=== PATIENT | male | born 1955 | race Caucasian/White ===

== ENCOUNTER 2019-09-04 10:46 | Emergency (ER) | payer OTHER ==
[2019-09-04 10:07] VITALS: BP 101/74; PULSE 100
--- NOTE | 2019-09-04 10:46 | EDM.PDOC ---
ED HPI GENERAL MEDICAL PROBLEM - General Chief Complaint: Skin Complaint Stated Complaint: WOUND Time Seen by Provider: 09/04/19 10:23 Source of Information: Reports: Patient History Limitations: Reports: No Limitations - History of Present Illness INITIAL COMMENTS - FREE TEXT/NARRATIVE: This 64 yo male patient reports to the ED from the [facility] due to inflammation of his right buttocks. 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 The patient reports the area has been getting much larger. The patient was advised that he had bursitis. The patient reports he has been having intermittent night sweats over the past 2 days. The patient has been taking NSAIDs and resting. The patient had a UA done through the [facility] today. The patient has been having increased pain and redness over the area of concern. Duration: Day(s):, Constant, Getting Worse Location: Reports: Lower Extremity, Right Quality: Reports: Ache, Dull, Throbbing Severity: Moderate Improves with: Reports: Other (pressure off the area) Worsens with: Reports: Other (pressure to the area) Context: Reports: Other Associated Symptoms: Reports: Other Right Scrotum Pain Score (Numeric/FACES): 8 - Related Data Allergies Allergy/AdvReac Type Severity Reaction Status Date / Time No Known Allergies Allergy Verified 09/04/19 10:04 Home Meds: Home Meds Budesonide/Formoterol [Symbicort 160-4.5 Mcg Inhaler] 2 puff INH BID 06/29/15 [ History] Multivitamin [Men's Multi-Vitamin] 1 each PO DAILY 06/29/15 [History] Simvastatin [Zocor] 10 mg PO BEDTIME 06/29/15 [History] Zafirlukast 20 mg PO BID 06/29/15 [History] Albuterol Sulfate [Proair Digihaler] 90 mcg IH Q6H PRN 09/04/19 [History] Aspirin [Adult Low Dose Aspirin EC] 81 mg PO DAILY 09/04/19 [History] Fish Oil/[place]-3 Fatty Acids [Fish Oil 1,000 MG] 1 gm PO DAILY 09/04/19 [History ] Fluticasone Propionate [Flonase] 1 spray NS DAILY 09/04/19 [History] Past Medical History HEENT History: Reports: Allergic Rhinitis, Impaired Vision Cardiovascular History: Reports: High Cholesterol Respiratory History: Reports: Asthma Gastrointestinal History: Reports: None Genitourinary History: Reports: None Musculoskeletal History: Reports: None Neurological History: Reports: None Psychiatric History: Reports: None Endocrine/Metabolic History: Reports: None Hematologic History: Reports: None Immunologic History: Reports: None Oncologic (Cancer) History: Reports: None Dermatologic History: Reports: Melanoma - Infectious Disease History Infectious Disease History: Reports: None - Past Surgical History Head Surgeries/Procedures: Reports: None GI Surgical History: Reports: Appendectomy Social & Family History - Family History Family Medical History: Noncontributory - Tobacco Use Smoking Status *Q: Never Smoker - Caffeine Use Caffeine Use: Reports: None - Recreational Drug Use Recreational Drug Use: No ED ROS GENERAL - Review of Systems Review Of Systems: Comprehensive ROS is negative, except as noted in HPI. ED EXAM, SKIN/RASH Exam: See Below Exam Limited By: No Limitations General Appearance: Alert, WD/WN, Moderate Distress Eye Exam: Bilateral Eye: EOMI, Normal Inspection Ears: Normal External Exam, Hearing Grossly Normal Nose: Normal Inspection, No Blood Throat/Mouth: Normal Lips, Normal Teeth, No Airway Compromise Neck: Full Range of Motion Respiratory/Chest: No Respiratory Distress, Lungs Clear, Normal Breath Sounds, No Accessory Muscle Use, Chest Non-Tender Cardiovascular: Normal Peripheral Pulses, Regular Rate, Rhythm, No Edema, No Gallop, No JVD, No Murmur, No Rub (Male) Exam: Deferred Rectal (Males) Exam: Deferred Back Exam: Normal Inspection, Full Range of Motion, NT Extremities: Normal Inspection, Normal Range of Motion, Non-Tender, No Pedal Edema, Normal Capillary Refill Neurological: Alert, Oriented, CN II-XII Intact, Normal Cognition, Normal Gait, Normal Reflexes, No Motor/Sensory Deficits Psychiatric: Normal Affect Skin: Erythema (right gluteal area with tenderness on palpation) Location, Skin: Lower Extremity, Right Characteristics: Erythematous Associated features: Warmth, Tenderness, Swelling, Induration, Inflammation Lymphatic: No Adenopathy ED SKIN PROCEDURES - I&D Site: Right buttock Skin Prep: Providone-Iodine (Betadine), Isopropyl Alcohol (Alcohol) Local Anesthesia: Lidocaine: 1% Plain Local Anesthetic Volume: 3cc Area Incised With: 11 Blade Drainage: Purulent, Bloody, Moderate Amount Probed to Break Up Loculations: Yes Packed With: None Sterile Dressinx4(s) Complications: No Course - Vital Signs Last Recorded V/S: Last Vital Signs Temp 37.1 C 09/04/19 10:04 Pulse 100 09/04/19 10:04 Resp 16 09/04/19 10:04 BP 101/74 09/04/19 10:04 Pulse Ox 100 09/04/19 10:04 - Orders/Labs/Meds Orders: Active Orders 24 hr Category Date Time Status CULTURE BLOOD [BC] Stat Lab 09/04/19 10:27 Ordered CULTURE WOUND [RM] Stat Lab 09/04/19 12:39 Ordered Labs: Laboratory Tests 09/04/19 09/04/19 09/04/19 Range/Units 10:34 10:34 10:34 WBC 12.6 H (5.0-10.0) 10^3/uL RBC 4.44 L (4.6-6.2) 10^6/uL Hgb 13.3 L (14.0-18.0) g/dL Hct 38.7 L (40.0-54.0) % MCV 87.2 (80-100) fL MCH 30.0 (27.0-34.0) pg MCHC 34.4 (33.0-35.0) g/dL Plt Count 228 (150-450) 10^3/uL Neut % (Auto) 85.3 H (42.2-75.2) % Lymph % (Auto) 6.1 L (20.5-50.1) % [place] % (Auto) 7.8 (2-8) % Eos % (Auto) 0.6 L (1.0-3.0) % Baso % (Auto) 0.2 (0.0-1.0) % Sodium 135 (135-145) mmol/L Potassium 4.5 (3.6-5.0) mmol/L Chloride 101 (101-111) mmol/L Carbon Dioxide 25.0 (21.0-31.0) mmol/L Anion Gap 13.5 BUN 17 (7-18) mg/dL Creatinine 1.0 (0.6-1.3) mg/dL Est Cr Clr Drug Dosing 69.90 mL/min Estimated GFR (MDRD) > 60 BUN/Creatinine Ratio 17.00 Glucose 102 (74-105) mg/dL Lactic Acid 1.1 (0.5-2.2) mmol/L Calcium 9.0 (8.4-10.2) mg/dl Total Bilirubin 0.8 (0.2-1.0) mg/dL AST 44 H (10-42) IU/L ALT 46 (10-60) IU/L Alkaline Phosphatase 91 (42-121) IU/L Total Protein 7.6 (6.7-8.2) g/dl Albumin 3.9 (3.2-5.5) g/dl Globulin 3.7 Albumin/Globulin Ratio 1.05 Meds: Medications Discontinued Medications Generic Name Dose Route Start Last Admin Trade Name Cayetano PRN Reason Stop Dose Admin Lidocaine HCl 30 ml 09/04/19 12:08 09/04/19 12:14 Xylocaine-Mpf 1% INJECT 09/04/19 12:09 30 ml ONETIME ONE Administration Departure - Departure Time of Disposition: 12:45 Disposition: Home, Self-Care 01 Condition: Fair Clinical Impression: Abscess of buttock, right - Discharge Information *PRESCRIPTION DRUG MONITORING PROGRAM REVIEWED*: Not Applicable *COPY OF PRESCRIPTION DRUG MONITORING REPORT IN PATIENT AYLEEN: Not Applicable Instructions: Skin Abscess Forms: ED Department Discharge Care Plan Goals: The patient was advised of the examination and lab results during the visit. The patient's abscess was incised and drained during the visit. The patient was given an oral dose of Keflex while in the ED. The patient was discharged with a script for Keflex (500 mg) #40 to take 1 by mouth 4 times per day for 10 days. The patient was encouraged to follow-up with his primary care facility near the end of the antibiotic course. If the patient has any additional symptoms or concerns, the patient should either return to the emergency department or visit his primary care facility. Sepsis Event Note - Evaluation Sepsis Screening Result: No Definite Risk - Focused Exam Vital Signs: Vital Signs Temp Pulse Resp BP Pulse Ox 09/04/19 10:04 37.1 C 100 16 101/74 100 Date Exam was Performed: 09/04/19 Time Exam was Performed: 12:41 - My Orders Last 24 Hours: My Active Orders 09/04/19 10:27 CULTURE BLOOD [BC] Stat 09/04/19 12:39 CULTURE WOUND [RM] Stat - Assessment/Plan Last 24 Hours: My Active Orders 09/04/19 10:27 CULTURE BLOOD [BC] Stat 09/04/19 12:39 CULTURE WOUND [RM] Stat
[2019-09-04 11:01] LABS: ANION GAP 13.5; CHLORIDE,CL 101 mmol/L (101-111); SODIUM,NA 135 mmol/L (135-145)
[2019-09-04] MEDS ORDERED: Lidocaine 1% 30 ML SDV INJECT ONE (12:08)
[2019-09-04] MEDS ORDERED: Cephalexin 500 MG Cap PO ONE (12:44)
== END 2019-09-04 13:03 | disposition home or self-care (01) ==
LOC: DL.ED 10:46
DX: L02.31 Cutaneous abscess of buttock (principal); J45.909 Unspecified asthma, uncomplicated; E78.00 Pure hypercholesterolemia, unspecified; Z79.82 Long term (current) use of aspirin; Z79.51 Long term (current) use of inhaled steroids; Z79.899 Other long term (current) drug therapy
CPT/HCPCS: 10060; 36415; 76881; 80053; 83605; 85025; 87040; 87070; 99284; A9270; J2001

== ENCOUNTER 2019-09-08 00:29 | Emergency (ER) | payer OTHER ==
[2019-09-08] MEDS ORDERED: Acetaminophen/HYDROcodone 325-10 MG Tab PO ONE (00:30)
[2019-09-08 00:38] VITALS: BP 110/63; PULSE 56
[2019-09-08] MEDS ORDERED: Clindamycin Phosphate 900 MG in Sodium Chloride 0.9% 100 ML IV ONE (00:44)
[2019-09-08] MEDS ORDERED: Sodium Chloride 0.9% 1,000 ML IV ONE (00:44)
[2019-09-08] MEDS ORDERED: Ondansetron 4 MG/2 ML SDV IV ONE ×2 (00:45→01:58)
[2019-09-08] MEDS ORDERED: fentaNYL 100 MCG/2 ML SDV IVPUSH ONE ×2 (00:45→01:24)
--- NOTE | 2019-09-08 00:59 | EDM.PDOC ---
ED HPI GENERAL MEDICAL PROBLEM - General Chief Complaint: Skin Complaint Stated Complaint: INFECTION RIGHT SIDE BUTTOCKS AREA. Time Seen by Provider: 09/08/19 00:55 Source of Information: Reports: Patient History Limitations: Reports: No Limitations - History of Present Illness INITIAL COMMENTS - FREE TEXT/NARRATIVE: was here 2 days ago same. Tx with keflex but abscess larger. 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), NSAIDS Right Buttock Pain Score (Numeric/FACES): 10 - Related Data Allergies Allergy/AdvReac Type Severity Reaction Status Date / Time No Known Allergies Allergy Verified 09/08/19 00:36 Home Meds: Home Meds Budesonide/Formoterol [Symbicort 160-4.5 Mcg Inhaler] 2 puff INH BID 06/29/15 [ History] Multivitamin [Men's Multi-Vitamin] 1 each PO DAILY 06/29/15 [History] Simvastatin [Zocor] 10 mg PO BEDTIME 06/29/15 [History] Zafirlukast 20 mg PO BID 06/29/15 [History] Albuterol Sulfate [Proair Digihaler] 90 mcg IH Q6H PRN 09/04/19 [History] Aspirin [Adult Low Dose Aspirin EC] 81 mg PO DAILY 09/04/19 [History] Fish Oil/[place]-3 Fatty Acids [Fish Oil 1,000 MG] 1 gm PO DAILY 09/04/19 [History ] Fluticasone Propionate [Flonase] 1 spray NS DAILY 09/04/19 [History] Past Medical History Respiratory History: Reports: Asthma Dermatologic History: Reports: Cellulitis Social & Family History - Family History Family Medical History: Noncontributory - Tobacco Use Smoking Status *Q: Unknown Ever Smoked Second Hand Smoke Exposure: No - Caffeine Use Caffeine Use: Reports: None - Recreational Drug Use Recreational Drug Use: No ED ROS GENERAL - Review of Systems Review Of Systems: Comprehensive ROS is negative, except as noted in HPI. ED EXAM, SKIN/RASH Exam: See Below Exam Limited By: No Limitations General Appearance: Alert, WD/WN, Mild Distress, Moderate Distress, Other (pain) Ears: Hearing Grossly Normal Throat/Mouth: Normal Voice, No Airway Compromise Head: Atraumatic Neck: Non-Tender, Full Range of Motion Respiratory/Chest: No Respiratory Distress Cardiovascular: Regular Rate, Rhythm GI/Abdominal: Soft, Non-Tender Neurological: Alert, Oriented, Normal Cognition, No Motor/Sensory Deficits Psychiatric: Normal Affect, Normal Mood Skin: Warm, Dry, Normal Color, Erythema Location, Skin: Other (right buttocks) Characteristics: Other (abscess) Associated features: Warmth, Tenderness, Swelling, Inflammation Lymphatic: No Adenopathy ED SKIN PROCEDURES - I&D Site: right buttocks Skin Prep: Providone-Iodine (Betadine) Local Anesthesia: Lidocaine: 1% Plain, Other (ethyl spray) Local Anesthetic Volume: 5cc Area Incised With: 15 Blade Drainage: Purulent, Bloody, Large Amount Probed to Break Up Loculations: No Packed With: 1/4 in. Iodoform Sterile Dressinx4(s) Complications: No Course - Vital Signs Last Recorded V/S: Last Vital Signs Temp 35.7 C 09/08/19 00:37 Pulse 56 L 09/08/19 00:37 Resp 16 09/08/19 00:37 BP 110/63 09/08/19 00:37 Pulse Ox 98 09/08/19 00:37 - Orders/Labs/Meds Orders: Active Orders 24 hr Category Date Time Status CULTURE BLOOD [BC] Stat Lab 09/08/19 00:50 Received CULTURE WOUND [RM] Stat Lab 09/08/19 01:30 Received Labs: Laboratory Tests 09/08/19 09/08/19 09/08/19 Range/Units 00:50 00:50 00:50 WBC 13.5 H (5.0-10.0) 10^3/uL RBC 4.25 L (4.6-6.2) 10^6/uL Hgb 12.6 L (14.0-18.0) g/dL Hct 36.0 L (40.0-54.0) % MCV 84.7 (80-100) fL MCH 29.6 (27.0-34.0) pg MCHC 35.0 (33.0-35.0) g/dL Plt Count 281 (150-450) 10^3/uL Neut % (Auto) 76.1 H (42.2-75.2) % Lymph % (Auto) 11.2 L (20.5-50.1) % [place] % (Auto) 11.2 H (2-8) % Eos % (Auto) 1.3 (1.0-3.0) % Baso % (Auto) 0.2 (0.0-1.0) % Sodium 135 (135-145) mmol/L Potassium 3.6 (3.6-5.0) mmol/L Chloride 101 (101-111) mmol/L Carbon Dioxide 22.0 (21.0-31.0) mmol/L Anion Gap 15.6 BUN 18 (7-18) mg/dL Creatinine 0.7 (0.6-1.3) mg/dL Est Cr Clr Drug Dosing 100.82 mL/min Estimated GFR (MDRD) > 60 BUN/Creatinine Ratio 25.71 Glucose 105 (74-105) mg/dL Lactic Acid 1.2 (0.5-2.2) mmol/L Calcium 8.8 (8.4-10.2) mg/dl Total Bilirubin 0.6 (0.2-1.0) mg/dL AST 55 H (10-42) IU/L ALT 75 H (10-60) IU/L Alkaline Phosphatase 102 (42-121) IU/L Total Protein 7.0 (6.7-8.2) g/dl Albumin 3.4 (3.2-5.5) g/dl Globulin 3.6 Albumin/Globulin Ratio 0.94 Meds: Medications Discontinued Medications Generic Name Dose Route Start Last Admin Trade Name Cayetano PRN Reason Stop Dose Admin Fentanyl 50 mcg 09/08/19 00:45 09/08/19 01:00 Sublimaze IVPUSH 09/08/19 00:46 50 mcg ONETIME ONE Administration Fentanyl 100 mcg 09/08/19 01:24 09/08/19 01:28 Sublimaze IVPUSH 09/08/19 01:25 100 mcg ONETIME ONE Administration Clindamycin Phosphate 900 mg/ 106 mls @ 200 mls/hr 09/08/19 00:44 09/08/19 00 :55 Sodium Chloride IV 09/08/19 01:15 200 mls/hr ONETIME ONE Administration Sodium Chloride 1,000 mls @ 999 mls/hr 09/08/19 00:44 09/08/19 00:55 Normal Saline IV 09/08/19 01:44 999 mls/hr .BOLUS ONE Administration Ondansetron HCl 4 mg 09/08/19 00:45 09/08/19 00:57 Zofran IV 09/08/19 00:46 4 mg ONETIME ONE Administration Ondansetron HCl 4 mg 09/08/19 01:58 09/08/19 02:03 Zofran IV 09/08/19 01:59 4 mg ONETIME ONE Administration Departure - Departure Time of Disposition: 02:29 Disposition: Home, Self-Care 01 Condition: Good Clinical Impression: Abscess - Discharge Information Instructions: Skin Abscess, [id number] Forms: ED Department Discharge Additional Instructions: 1) keep area clean dry covered 2) recheck tomorrow rx given; clindamycin 300mg qid x 40 vicodin 5/325mg tid prn x 12 Sepsis Event Note - Evaluation Sepsis Screening Result: No Definite Risk - Focused Exam Vital Signs: Vital Signs Temp Pulse Resp BP Pulse Ox 09/08/19 00:37 35.7 C 56 L 16 110/63 98 Date Exam was Performed: 09/08/19 Time Exam was Performed: 02:27 - My Orders Last 24 Hours: My Active Orders 09/08/19 00:50 CULTURE BLOOD [BC] Stat 09/08/19 01:30 CULTURE WOUND [RM] Stat - Assessment/Plan Last 24 Hours: My Active Orders 09/08/19 00:50 CULTURE BLOOD [BC] Stat 09/08/19 01:30 CULTURE WOUND [RM] Stat
[2019-09-08 01:20] LABS: ANION GAP 15.6; CHLORIDE,CL 101 mmol/L (101-111); SODIUM,NA 135 mmol/L (135-145)
[2019-09-08] MEDS ORDERED: Acetaminophen/HYDROcodone 325-10 MG Tab ONE (02:31)
== END 2019-09-08 02:58 | disposition home or self-care (01) ==
LOC: DL.ED 00:29
DX: L02.31 Cutaneous abscess of buttock (principal); J45.909 Unspecified asthma, uncomplicated; Z79.51 Long term (current) use of inhaled steroids
CPT/HCPCS: 10060; 36415; 80053; 83605; 85025; 87040; 87070; 87077; 87186; 96361; 96365; 96375; 96376; 99283; A9270; J2405; J3010; J3490; J7030; J7050

== ENCOUNTER 2019-09-08 19:11 | Emergency (ER) | payer OTHER ==
[2019-09-08] MEDS ORDERED: Lidocaine/EPINEPHrine/Tetracaine Soln 5 ML Each TOP ONE (19:20)
[2019-09-08 19:24] VITALS: BP 101/54; PULSE 61
--- NOTE | 2019-09-08 19:24 | EDM.PDOC ---
ED HPI GENERAL MEDICAL PROBLEM - General Chief Complaint: Wound Recheck Stated Complaint: CHECK VITALS/DRESSING Time Seen by Provider: 09/08/19 19:18 Source of Information: Reports: Patient History Limitations: Reports: No Limitations - History of Present Illness INITIAL COMMENTS - FREE TEXT/NARRATIVE: s/p I&D with packing yesterday. - Related Data Allergies Allergy/AdvReac Type Severity Reaction Status Date / Time No Known Allergies Allergy Verified 09/08/19 19:15 Home Meds: Home Meds Budesonide/Formoterol [Symbicort 160-4.5 Mcg Inhaler] 2 puff INH BID 06/29/15 [ History] Multivitamin [Men's Multi-Vitamin] 1 each PO DAILY 06/29/15 [History] Simvastatin [Zocor] 10 mg PO BEDTIME 06/29/15 [History] Zafirlukast 20 mg PO BID 06/29/15 [History] Albuterol Sulfate [Proair Digihaler] 90 mcg IH Q6H PRN 09/04/19 [History] Aspirin [Adult Low Dose Aspirin EC] 81 mg PO DAILY 09/04/19 [History] Fish Oil/[place]-3 Fatty Acids [Fish Oil 1,000 MG] 1 gm PO DAILY 09/04/19 [History ] Fluticasone Propionate [Flonase] 1 spray NS DAILY 09/04/19 [History] Past Medical History HEENT History: Reports: Allergic Rhinitis, Impaired Vision Cardiovascular History: Reports: High Cholesterol Respiratory History: Reports: Asthma Gastrointestinal History: Reports: None Genitourinary History: Reports: None Musculoskeletal History: Reports: None Neurological History: Reports: None Psychiatric History: Reports: None Endocrine/Metabolic History: Reports: None Hematologic History: Reports: None Immunologic History: Reports: None Oncologic (Cancer) History: Reports: None Dermatologic History: Reports: Cellulitis - Infectious Disease History Infectious Disease History: Reports: None - Past Surgical History Head Surgeries/Procedures: Reports: None GI Surgical History: Reports: Appendectomy Social & Family History - Family History Family Medical History: Noncontributory - Caffeine Use Caffeine Use: Reports: None ED ROS GENERAL - Review of Systems Review Of Systems: Comprehensive ROS is negative, except as noted in HPI. ED EXAM, SKIN/RASH Exam: See Below Exam Limited By: No Limitations General Appearance: Alert, WD/WN, Mild Distress, Other (discomfort) Ears: Hearing Grossly Normal Throat/Mouth: Normal Voice, No Airway Compromise Head: Atraumatic Neck: Non-Tender, Full Range of Motion Respiratory/Chest: No Respiratory Distress Cardiovascular: Regular Rate, Rhythm GI/Abdominal: Soft, Non-Tender Location, Skin: Other (buttocks abscess decrease swelling and erythema. mild purulent drainage) Characteristics: Erythematous, Other (firm) Associated features: Tenderness, Inflammation Course - Vital Signs Last Recorded V/S: Last Vital Signs Temp 35.8 C 09/08/19 19:18 Pulse 61 09/08/19 19:18 Resp 16 09/08/19 19:18 BP 101/54 L 09/08/19 19:18 Pulse Ox 97 09/08/19 19:18 - Orders/Labs/Meds Meds: Medications Discontinued Medications Generic Name Dose Route Start Last Admin Trade Name Freq PRN Reason Stop Dose Admin Lidocaine/Tetracaine 5 ml 09/08/19 19:20 Let Soln TOP 09/08/19 19:21 ONETIME ONE Departure - Departure Time of Disposition: 19:49 Disposition: Home, Self-Care 01 Condition: Good Clinical Impression: Abscess - Discharge Information Referrals: Keyla Lynch [Primary Care Provider] - Forms: ED Department Discharge Additional Instructions: 1) continue home care and meds 2) recheck tomorrow Sepsis Event Note - Focused Exam Vital Signs: Vital Signs Temp Pulse Resp BP Pulse Ox 09/08/19 19:18 35.8 C 61 16 101/54 L 97 Date Exam was Performed: 09/08/19 Time Exam was Performed: 19:49
== END 2019-09-08 19:54 | disposition home or self-care (01) ==
LOC: DL.ED 19:11
DX: L02.31 Cutaneous abscess of buttock (principal); E78.00 Pure hypercholesterolemia, unspecified; J45.909 Unspecified asthma, uncomplicated; Z79.51 Long term (current) use of inhaled steroids; Z79.82 Long term (current) use of aspirin; Z79.899 Other long term (current) drug therapy
CPT/HCPCS: 99282; A9270

== ENCOUNTER 2019-09-09 19:08 | Emergency (ER) | payer OTHER ==
[2019-09-09] MEDS ORDERED: Lidocaine/EPINEPHrine/Tetracaine Soln 5 ML Each TOP ONE (19:17)
[2019-09-09 19:21] VITALS: BP 108/82; PULSE 85
--- NOTE | 2019-09-09 19:49 | EDM.PDOC ---
ED HPI GENERAL MEDICAL PROBLEM - General Chief Complaint: Wound Recheck Stated Complaint: OP WOUND RECHECK Time Seen by Provider: 09/09/19 19:44 Source of Information: Reports: Patient History Limitations: Reports: No Limitations - History of Present Illness INITIAL COMMENTS - FREE TEXT/NARRATIVE: wound check. Right Perineal Area Pain Score (Numeric/FACES): 5 - Related Data Allergies Allergy/AdvReac Type Severity Reaction Status Date / Time No Known Allergies Allergy Verified 09/08/19 19:15 Home Meds: Home Meds Budesonide/Formoterol [Symbicort 160-4.5 Mcg Inhaler] 2 puff INH BID 06/29/15 [ History] Multivitamin [Men's Multi-Vitamin] 1 each PO DAILY 06/29/15 [History] Simvastatin [Zocor] 10 mg PO BEDTIME 06/29/15 [History] Zafirlukast 20 mg PO BID 06/29/15 [History] Albuterol Sulfate [Proair Digihaler] 90 mcg IH Q6H PRN 09/04/19 [History] Aspirin [Adult Low Dose Aspirin EC] 81 mg PO DAILY 09/04/19 [History] Fish Oil/[place]-3 Fatty Acids [Fish Oil 1,000 MG] 1 gm PO DAILY 09/04/19 [History ] Fluticasone Propionate [Flonase] 1 spray NS DAILY 09/04/19 [History] Past Medical History HEENT History: Reports: Allergic Rhinitis, Impaired Vision Cardiovascular History: Reports: High Cholesterol Respiratory History: Reports: Asthma Gastrointestinal History: Reports: None Genitourinary History: Reports: None Musculoskeletal History: Reports: None Neurological History: Reports: None Psychiatric History: Reports: None Endocrine/Metabolic History: Reports: None Hematologic History: Reports: None Immunologic History: Reports: None Oncologic (Cancer) History: Reports: None Dermatologic History: Reports: Cellulitis - Infectious Disease History Infectious Disease History: Reports: None - Past Surgical History Head Surgeries/Procedures: Reports: None GI Surgical History: Reports: Appendectomy Social & Family History - Family History Family Medical History: Noncontributory - Caffeine Use Caffeine Use: Reports: None ED ROS GENERAL - Review of Systems Review Of Systems: Comprehensive ROS is negative, except as noted in HPI. ED EXAM, SKIN/RASH Exam: See Below Exam Limited By: No Limitations General Appearance: Alert, WD/WN, No Apparent Distress Ears: Hearing Grossly Normal Throat/Mouth: Normal Voice, No Airway Compromise Head: Atraumatic Neck: Non-Tender, Full Range of Motion Respiratory/Chest: No Respiratory Distress Cardiovascular: Regular Rate, Rhythm GI/Abdominal: Soft, Non-Tender Extremities: Other (right buttocks swelling & erythema have decreased significantly, area still has residual firm tenderness.) Neurological: Alert, Oriented, Normal Cognition, Normal Gait, No Motor/Sensory Deficits Psychiatric: Normal Affect, Normal Mood Skin: Warm, Dry, Normal Color Location, Skin: Upper Extremity, Right Characteristics: Erythematous Associated features: Tenderness, Swelling, Inflammation. No: Lymphangitis Lymphatic: No Adenopathy Course - Vital Signs Last Recorded V/S: Last Vital Signs Temp 36.6 C 09/09/19 19:20 Pulse 85 09/09/19 19:20 Resp 18 09/09/19 19:20 BP 108/82 09/09/19 19:20 Pulse Ox 85 L 09/09/19 19:20 - Orders/Labs/Meds Meds: Medications Discontinued Medications Generic Name Dose Route Start Last Admin Trade Name Cayetano PRN Reason Stop Dose Admin Lidocaine/Tetracaine 5 ml 09/09/19 19:17 09/09/19 19:25 Let Soln TOP 09/09/19 19:18 5 ml ONETIME ONE Administration Departure - Departure Time of Disposition: 19:48 Disposition: Home, Self-Care 01 Condition: Good Clinical Impression: Abscess - Discharge Information Instructions: Skin Abscess, [id number] Additional Instructions: 1) keep wound clean dry covered 2) wound check tomorrow 3) continue meds Sepsis Event Note - Evaluation Sepsis Screening Result: No Definite Risk - Focused Exam Vital Signs: Vital Signs Temp Pulse Resp BP Pulse Ox 09/09/19 19:20 36.6 C 85 18 108/82 85 L Date Exam was Performed: 09/09/19 Time Exam was Performed: 19:44
== END 2019-09-09 19:58 | disposition home or self-care (01) ==
LOC: DL.ED 19:08
DX: L02.215 Cutaneous abscess of perineum (principal); H54.7 Unspecified visual loss; E78.00 Pure hypercholesterolemia, unspecified; J45.909 Unspecified asthma, uncomplicated; Z79.82 Long term (current) use of aspirin; Z79.899 Other long term (current) drug therapy
CPT/HCPCS: 99282; A9270

== ENCOUNTER 2019-09-11 19:04 | Emergency (ER) | payer OTHER ==
[2019-09-11 19:18] VITALS: BP 110/74; PULSE 94
== END 2019-09-11 20:46 | disposition left against medical advice (07) ==
LOC: DL.ED 19:04
DX: Z53.21 Procedure and treatment not carried out due to patient leaving prior to being seen by health care provider (principal)